=== PATIENT | male | born 1980 | race Asian ===

== ENCOUNTER 2020-06-28 04:51 | Day surgery (SDC) | payer OTHER ==
[2020-06-25 11:51] VITALS: BMI 23.5
--- OUTSIDE RECORDS SUMMARY | 2020-06-28 04:54 | XMS ---
:1980 Author Organization [facility] Support Name Relationship Address Phone UE Unavailable Unavailable Unavailable ALEKSANDR SCHULTZ [address] [place] [id number] Re-disclosure Warning The records that you are about to access may contain information from federally- assisted alcohol or drug abuse programs. If such information is present, then the following federally mandated warning applies: This information has been disclosed to you from records protected by federal confidentiality rules (42 CFR part 2). The federal rules prohibit you from making any further disclosure of this information unless further disclosure is expressly permitted by the written consent of the person to whom it pertains or as otherwise permitted by 42 CFR part 2. A general authorization for the release of medical or other information is NOT sufficient for this purpose. The Federal rules restrict any use of the information to criminally investigate or prosecute any alcohol or drug abuse patient.The records that you are about to access may contain highly sensitive health information, the redisclosure of which is protected by Article 27-F of the [facility] Public Health law. If you continue you may haveaccess to information: Regarding HIV / AIDS; Provided by facilities licensed or operated by the [facility] Office of Mental Health; or Provided by the [facility] Office for People With Developmental Disabilities. If such information is present, then the following [facility] mandated warning applies: This information has been disclosed to you from confidential records which are protected by state law. State law prohibits you from making any further disclosure of this information without the specific written consent of the person to whom it pertains, or as otherwise permitted by law. Any unauthorized further disclosure in violation of state law may result in a fine or care home sentence or both. A general authorization for the release of medical or other information is NOT sufficient authorization for further disclosure. Insurance Providers Payer name Policy type Policy ID Covered Covered libertarian's Policy P hellen / Coverage libertarian ID relationship to [facility] orm[facility] type irving MONCHO [id number] ESSENTIAL PLAN 1 2 [facility] [id number] S [id number] PLANS Results ID Date Data Source [id number] 06/24/2020 12:27:00 PM EDT [facility] Name Value Range Interpretation Description Data Sup porting Code Source(s) Document(s ) SARS [facility] coronavirus 2 RNA This lab was ordered by [facility] and reported by [facility]. ID Date Data Source [id number] 05/06/2020 07:42:00 AM EDT [facility] Name Value Range Interpretation Description Data Sup porting Code Source(s) Document(s ) SARS [facility] coronavirus 2 RNA [facility] and reported by [facility]. Procedure
[2020-06-28] MEDS ORDERED: BENZOIN/ALOE VERA/STORAX/TOLU 58 ML BOTTLE ONE (10:47)
[2020-06-28] MEDS ORDERED: ROCURONIUM BROMIDE 50 MG/5 ML SYRINGE ONE ×2 (11:46→11:59)
[2020-06-28] MEDS ORDERED: DEXAMETHASONE SOD PHOSPHATE 4 MG/1 ML VIAL ONE ×2 (11:46→11:59)
[2020-06-28] MEDS ORDERED: PROPOFOL 20 ML ONE ×2 (11:46→11:59)
[2020-06-28] MEDS ORDERED: LIDOCAINE HCL 2% 100 MG/5 ML DISP.SYRIN ONE (11:59)
[2020-06-28] MEDS ORDERED: fentaNYL CITRATE 250 MCG/5 ML VIAL ONE (11:59)
[2020-06-28] MEDS ORDERED: MIDAZOLAM HCL 2 MG/2 ML SINGLE DOSE VIAL ONE (11:59)
--- NOTE | 2020-06-28 13:51 | HP ---
History & Physical Update - History History: No Change - Physical Physical: No Change - Assessment Assessment: No Change - Plan Plan: No Change (for lap devorah possible open; r/b/t/a's d/w the patient and informed consent obtained.)
[2020-06-28] MEDS ORDERED: ceFAZolin 2 GRAM PREMIX BAG IVPB ONE (14:00)
[2020-06-28] MEDS ORDERED: BUPIVACAINE HCL/PF 0.5% (5 MG/ML) 30 ML VIAL IJ ONE ×2 (14:19)
[2020-06-28] MEDS ORDERED: NEOSTIGMINE METHYLSULFATE 0.5 MG/ML - 10 ML MDV ONE (14:54)
--- NOTE | 2020-06-28 15:31 | OP ---
Operative Note - Note: Operative Date: 06/28/20 Pre-Operative Diagnosis: Chronic cholecystitis; Cholelithiasis Operation: Laprascopic cholecystectomy Post-Operative Diagnosis: Same as Pre-op Surgeon: Jere Kyle Pole Incisor Operator: Joe Vital Anesthesiologist/GLASS FORMING CREW MEMBER: Marlyn Gerber Anesthesia: General Specimens Removed: Gallbladder Estimated Blood Loss (mls): 30 Fluid Volume Replaced (mls): 1,500 Operative Report Dictated: Yes
[2020-06-28] MEDS ORDERED: ACETAMINOPHEN 1000 MG/100 ML VIAL (NON FORMULARY) IVPB ONE (15:32)
--- NOTE | 2020-06-28 15:32 | SURG ---
Surgery [employer] Logger Note [employer] Logger: Joe Vital PA-C Date of Service: 06/28/20 Diagnosis: Chronic cholecystitis; Cholelithiasis Procedure: Laprascopic cholecystectomy I was present for the entirety of the operative procedure. For further detail, please refer to operative report. Visit type - Case Type Case Type: Scheduled - New patient This patient is new to me today: Yes Date on this admission: 06/28/20
[2020-06-28] MEDS ORDERED: ONDANSETRON 4 MG/2 ML VIAL IVPUSH PRN (16:00)
[2020-06-28] MEDS ORDERED: LACTATED RINGERS SOLUTION 1,000 ML IV SCH (16:00)
[2020-06-28] MEDS ORDERED: oxyCODONE HCL 5 MG TABLET PO PRN ×3 (16:00→17:00)
[2020-06-28] MEDS ORDERED: ACETAMINOPHEN 325 MG TABLET (FP) PO PRN (17:00)
[2020-06-28 18:55] VITALS: BP 119/78; PULSE 60; TEMP 97.3
--- NOTE | 2020-06-30 09:09 | OP ---
DATE OF OPERATION: 06/28/2020 PREOPERATIVE DIAGNOSIS: Chronic cholecystitis and cholelithiasis. POSTOPERATIVE DIAGNOSIS: Chronic cholecystitis and cholelithiasis. PROCEDURE: Laparoscopic cholecystectomy. SURGEON: Jere Kyle MD COMPUTER NUMERIC CONTROL SETTER: ANDREAS Turner ANESTHESIA: General. OPERATIVE FINDINGS: Chronic cholecystitis and cholelithiasis. The rest of the findings were unremarkable. DESCRIPTION OF PROCEDURE: The patient was placed on the operating room table in supine position. After the induction of general anesthesia, the patient's abdomen was prepped with ChloraPrep and draped in sterile fashion. Time-out was taken and then pneumoperitoneum established above the umbilicus using a Veress needle. Once 15 mm of intra-abdominal pressure was obtained, a 5-mm port was placed at the umbilicus. Additional lateral 5-mm ports and a subxiphoid 12-mm port were placed and laparoscopy carried out, and the previously noted findings were observed. The gallbladder was placed on cephalad and lateral traction, and dissection was begun at the neck of the gallbladder where the peritoneum was opened medially and laterally using blunt and sharp dissection and electrocautery. Dissection continued in the triangle of Calot where the cystic duct was identified coursing from the neck of the gallbladder distally to the common bile duct. It was dissected proximally and distally for length. Similarly, the artery was similarly identified and dissected. A critical view of safety was taken, and then the cystic duct divided proximally and distally using Endo Kelly after it was clipped twice proximally and distally with large hemoclips. The artery was similarly clipped and divided. Hemostasis was checked for and noted to be good and then the gallbladder was removed from the liver bed in a retrograde fashion using electrocautery. Prior to removal from the edge of the liver, hemostasis was again verified and then the gallbladder removed from the edge of the liver, placed in an EndoCatch, and brought out through the subxiphoid port. Pneumoperitoneum was reestablished, hemostasis verified again, and then the 5-mm lateral and subxiphoid ports were removed under laparoscopic vision without evidence of bleeding from the port sites. The umbilical port was removed and the pneumoperitoneum evacuated. All port sites were infiltrated with 0.5% Marcaine and the skin edges closed with 4-0 Biosyn in a subcuticular and continuous fashion. Steri-Strips and Band-Aid dressings were placed and the procedure terminated at this point and the patient aroused from general anesthesia and transferred to the post anesthesia care unit in stable condition awake and alert. ESTIMATED BLOOD LOSS: 30 mL. REPLACEMENTS: Crystalloid. DRAINS: None. SPECIMENS: Gallbladder and contents to pathology. I, Jere Kyle, was physically present in the operating room from the time the patient was placed on the operating room table until he was transferred to the post anesthesia care unit in my company. MD VINICIUS Quiroz/[id number]
--- NOTE | 2020-07-02 16:35 | PATH ---
Surgical Pathology Report Patient Name: CLAYTON SCHULTZ [facility]. Rec. #: [id number] /Age/Gender: 1980 (Age: 40) / M Account: [id number] Location: [facility] SUR[facility]ICAL Taken: 06/28/2020 Received: 06/29/2020 Reported: 07/02/2020 Physicians: Jere Kyle MD Specimen(s) Received GALLBLADDER Clinical History Cholecystitis Final Diagnosis GALLBLADDER, CHOLECYSTECTOMY: CHRONIC CHOLECYSTITIS AND CHOLELITHIASIS. Electronically Signed Oma Rizzo M.D. Gross Description Received in formalin, labeled "gallbladder," is a 8.0 x 2.7 x 1.8 cm. gallbladder with a 0.2 cm. in length portion of cystic duct attached. The outer surface is leary andres with a focal defect and varies from smooth to shaggy. The lumen contains leary, mucinous bile as well as 2 yellow, irregular choleliths measuring 1.1 and 1.5 cm in greatest dimension. There is an additional 1.4 cm greatest dimension brown, ovoid cholelith separately received within the same container. The mucosa is leary with focal erosions. There is a focal thickening of the gallbladder wall with submucosal cystic spaces in the fundus. The wall of the gallbladder ranges from 0.1-0.8 cm in thickness. Recruiter Specialist sections are submitted in 2 cassettes as follows: 1-cystic duct margin and lifeline representatives full thickness sections of gallbladder; 2-thickening of fundic wall. 06/30/2020 saudi06/30/2020
== END 2020-06-28 18:35 | disposition home or self-care (01) ==
LOC: JASU-SURG 04:51
PROVIDERS: ATTEND Surgery
PROC: 0FT44ZZ Resection of Gallbladder, Percutaneous Endoscopic Approach (ICD-10-PCS; principal; 2020-06-28 11:30)
DX: K80.10 Calculus of gallbladder with chronic cholecystitis without obstruction (principal)
CPT/HCPCS: 86850; 86900; 86901; 88304-TC; 94760